=== PATIENT | male | born 1945 | race Two or more races ===

== ENCOUNTER → 2018-05-24 | Outpatient (CLI) | payer OTHER | END | disposition home or self-care (01) | LOC: NUCLEAR 09:27 | DX: I73.9 Peripheral vascular disease, unspecified (principal) ==

== ENCOUNTER 2022-03-11 07:32 | Outpatient (CLI) | payer OTHER | END 2022-03-11 07:33 | disposition home or self-care (01) | LOC: NUCLEAR 07:32 | PROVIDERS: ATTEND Internal Medicine Cardiovascular Disease | DX: I73.9 Peripheral vascular disease, unspecified (principal) ==

== ENCOUNTER → 2022-03-14 | Outpatient (CLI) | payer OTHER | END | disposition home or self-care (01) | LOC: NUCLEAR 03-04 08:00 | PROVIDERS: ATTEND Internal Medicine Cardiovascular Disease | DX: I73.9 Peripheral vascular disease, unspecified (principal) ==

== ENCOUNTER 2023-05-26 07:51 | Outpatient (CLI) | payer OTHER | END 2023-05-26 07:55 | disposition home or self-care (01) | LOC: NUCLEAR 07:51 | PROVIDERS: ATTEND Internal Medicine | DX: I25.118 Atherosclerotic heart disease of native coronary artery with other forms of angina pectoris (principal); I11.9 Hypertensive heart disease without heart failure; E78.2 Mixed hyperlipidemia | CPT/HCPCS: 78452; 93017; A9500; J0153 ==

== ENCOUNTER → 2024-07-11 07:28 | Outpatient (CLI) | payer OTHER | END | disposition home or self-care (01) | LOC: NUCLEAR 07:28 | PROVIDERS: ATTEND Internal Medicine | DX: I87.2 Venous insufficiency (chronic) (peripheral) (principal) ==